=== PATIENT | female | born 1985 ===

== ENCOUNTER 2024-09-11 21:07 | Emergency (ER) | payer BC, MEDICAID ==
[2024-09-11] MEDS: Sulfamethoxazole/Trimethoprim 800-160 MG Tab PO ONE (23:53)
[2024-09-11] MEDS: Cephalexin 500 MG Cap PO ONE (23:53)
== END 2024-09-11 23:55 | disposition home or self-care (01) ==
LOC: JD.ED 21:07
DX: N76.4 Abscess of vulva (principal); I10 Essential (primary) hypertension; J45.909 Unspecified asthma, uncomplicated; E66.9 Obesity, unspecified; F17.210 Nicotine dependence, cigarettes, uncomplicated; Z86.16 Personal history of COVID-19; Z79.899 Other long term (current) drug therapy
CPT/HCPCS: 81025; 99283; A9270-GY